=== PATIENT | male | born 1975 | race American Indian/Alaskan Native ===

== ENCOUNTER 2019-07-19 17:53 | Emergency (ER) | payer MEDICARE ==
[2019-07-19] MEDS ORDERED: SODIUM CHLORIDE 0.9% 1000 ML 1,000 ML IV ONE (18:21)
[2019-07-19 18:37] LABS: Hematocrit 46.2 % (35.5-45.6); Hemoglobin 15.6 gm/dl (11.8-15.2); Mean Corpuscular HGB Conc 34 % (32-34); Mean Corpuscular Volume 96 fl (84-94); Platelet Count 240 K/mm3 (140-440); Red Blood Count 4.83 M/mm3 (3.65-5.03); Red Cell Distribution Width 15.2 % (13.2-15.2)
--- NOTE | 2019-07-19 18:44 | Emergency Department Report ---
ED Psych HPI - General Chief Complaint: Psych Stated Complaint: SI Time Seen by Provider: 07/19/19 18:19 Source: patient, family Mode of arrival: Wheelchair - History of Present Illness Initial Comments: cc: plan to overdose, alcohol intoxication HPI: Mr. Tony is a 43-year-old male with history of alcoholism, hypertension and chronic pain who presents with alcohol intoxication and plans to commit suicide by overdose. His recovery counselor is at the bedside. Since March he has a resided at a recovery house for alcoholism. His counselor at the bedside reports that he has been drinking 1/2-1 gallon of vodka since the of his mother 1 month ago. He has been severely depressed. He informed his counselor that he would overdose on pills. He has taken pain medication for chronic knee pain. He was recently used cocaine which is a new drug of choice. He desires any new pain at this time. Denies any physical complaints. He drank vodka just prior to arrival. MD Complaint: suicidal ideation, feels depressed -: Gradual, month(s) (1) Associated Psychiatric Symptoms: depression, suicidal ideation Quality: constant Improves With: none Worsens With: none Context: recent alcohol abuse, recent drug abuse, significant life stressor Associated Symptoms: denies other symptoms Treatments Prior to Arrival: none If Self Harm: admits thoughts of, has plan - Related Data Home Medications Medication Instructions Recorded Confirmed Last Taken Adderall 10 mg PO TID 07/20/19 07/20/19 Unknown Gabapentin 600 mg PO TID 07/20/19 07/20/19 Unknown HYDROcodone/APAP 10-325 [[place] 1 mg PO TID PRN 07/20/19 07/20/19 Unknown 10-325 mg TAB] Norvasc 10 mg PO DAILY 07/20/19 07/20/19 Unknown Prozac 80 mg PO HS 07/20/19 07/20/19 Unknown traZODone 300 mg PO HS 07/20/19 07/20/19 Unknown [place] 150 mg PO QDAY 07/21/19 07/21/19 Unknown [place] Carbonate [Eskalith] 300 mg PO BID 07/21/19 07/21/19 Unknown SEROquel 400 mg PO BID 07/21/19 07/21/19 Unknown Allergies Allergy/AdvReac Type Severity Reaction Status Date / Time No Known Allergies Allergy Verified 01/16/20 22:02 ED Review of Systems ROS: Stated complaint: SI Other details as noted in HPI Comment: All other systems reviewed and negative Constitutional: denies: fever, malaise Respiratory: denies: cough Cardiovascular: denies: chest pain Gastrointestinal: denies: abdominal pain, nausea Musculoskeletal: back pain (chronic back pain), arthralgia (chronic knee pain) Neurological: denies: headache ED Past Medical Hx - Past Medical History Previous Medical History?: Yes Hx Hypertension: Yes Additional medical history: Alcoholism - Surgical History Past Surgical History?: Yes Additional Surgical History: Bilateral knee surgery - Family History Family history: hypertension - Social History Smoking Status: Never Smoker Substance Use Type: Alcohol, Cocaine, Prescribed Other Social History: Has been unemployed since March. Works in [employer]. - Medications Home Medications: Home Medications Medication Instructions Recorded Confirmed Last Taken Type Adderall 10 mg PO TID 07/20/19 07/20/19 Unknown History Gabapentin 600 mg PO TID 07/20/19 07/20/19 Unknown History HYDROcodone/APAP 10-325 [[place] 1 mg PO TID PRN 07/20/19 07/20/19 Unknown History 10-325 mg TAB] Norvasc 10 mg PO DAILY 07/20/19 07/20/19 Unknown History Prozac 80 mg PO HS 07/20/19 07/20/19 Unknown History traZODone 300 mg PO HS 07/20/19 07/20/19 Unknown History [place] 150 mg PO QDAY 07/21/19 07/21/19 Unknown History [place] Carbonate [Eskalith] 300 mg PO BID 07/21/19 07/21/19 Unknown History SEROquel 400 mg PO BID 07/21/19 07/21/19 Unknown History ED Physical Exam - General Limitations: No Limitations General appearance: alert, in no apparent distress, appears intoxicated - Head Head exam: Present: atraumatic, normocephalic - Eye Eye exam: Present: normal appearance, PERRL, conjunctival injection - ENT ENT exam: Present: mucous membranes moist - Neck Neck exam: Present: normal inspection, full ROM. Absent: tenderness, meningismus - Respiratory Respiratory exam: Present: normal lung sounds bilaterally. Absent: respiratory distress, wheezes, rales, rhonchi - Cardiovascular Cardiovascular Exam: Present: regular rate, normal rhythm, normal heart sounds. Absent: systolic murmur, diastolic murmur, rubs, gallop - GI/Abdominal GI/Abdominal exam: Present: soft, normal bowel sounds. Absent: distended, tenderness, guarding, rebound - Rectal Rectal exam: Present: deferred - Extremities Exam Extremities exam: Present: normal inspection - Neurological Exam Neurological exam: Present: alert, oriented X3 - Psychiatric Psychiatric exam: Present: depressed, flat affect - Skin Skin exam: Present: warm, dry, intact, normal color. Absent: rash ED Course Vital Signs 07/19/19 07/19/19 07/19/19 17:56 19:00 21:00 Temperature 98.6 F Pulse Rate 108 H 89 81 Respiratory 16 20 20 Rate Blood Pressure 153/106 Blood Pressure 146/96 146/69 [Left] O2 Sat by Pulse 92 94 95 Oximetry 07/20/19 07/20/19 07/20/19 00:00 08:10 10:34 Temperature 97.7 F 98.3 F Pulse Rate 92 H 99 H Respiratory 15 18 16 Rate Blood Pressure 154/98 Blood Pressure 133/88 [Left] O2 Sat by Pulse 95 93 Oximetry 07/20/19 07/20/19 11:34 12:41 Temperature 98.7 F Pulse Rate 111 H Respiratory 20 16 Rate Blood Pressure 156/100 Blood Pressure [Left] O2 Sat by Pulse 96 Oximetry ED Medical Decision Making - Lab Data Result diagrams: 07/19/19 18:15 07/19/19 18:15 Laboratory Results - last 24 hr 07/19/19 07/19/19 07/19/19 18:15 18:15 18:15 WBC 5.3 RBC 4.83 Hgb 15.6 H Hct 46.2 H MCV 96 H MCH 32 MCHC 34 RDW 15.2 Plt Count 240 Lymph % (Auto) Hadoop Admin Add Manual Diff Complete Total Counted 100 Seg Neutrophils % Hadoop Admin Seg Neuts % (Manual) 31.0 L Band Neutrophils % 0 Lymphocytes % (Manual) 63.0 H Reactive Lymphs % (Man) 0 Monocytes % (Manual) 3.0 Eosinophils % (Manual) 1.0 Basophils % (Manual) 2.0 H Metamyelocytes % 0 Myelocytes % 0 Promyelocytes % 0 Blast Cells % 0 Nucleated RBC % Not Reportable Seg Neutrophils # Man 1.6 L Band Neutrophils # 0.0 Lymphocytes # (Manual) 3.3 Abs React Lymphs (Man) 0.0 Monocytes # (Manual) 0.2 Eosinophils # (Manual) 0.1 Basophils # (Manual) 0.1 Metamyelocytes # 0.0 Myelocytes # 0.0 Promyelocytes # 0.0 Blast Cells # 0.0 WBC Morphology Not Reportable Hypersegmented Neuts Not Reportable Hyposegmented Neuts Not Reportable Hypogranular Neuts Not Reportable Smudge Cells Not Reportable Toxic Granulation Not Reportable Toxic Vacuolation Not Reportable Dohle Bodies Not Reportable Pelger-Huet Anomaly Not Reportable Lillie Rods Not Reportable Platelet Estimate Consistent w auto Clumped Platelets Not Reportable Plt Clumps, EDTA Not Reportable Large Platelets Not Reportable Giant Platelets Not Reportable Platelet Satelliting Not Reportable Plt Morphology Comment Not Reportable RBC Morphology Normal Dimorphic RBCs Not Reportable Polychromasia Not Reportable Hypochromasia Not Reportable Poikilocytosis Not Reportable Anisocytosis Not Reportable Microcytosis Not Reportable Macrocytosis Not Reportable Spherocytes Not Reportable Pappenheimer Bodies Not Reportable Sickle Cells Not Reportable Target Cells Not Reportable Tear Drop Cells Not Reportable Ovalocytes Not Reportable Helmet Cells Not Reportable [place] Bodies Not Reportable [place] Rings Not Reportable Man Cells Not Reportable Bite Cells Not Reportable Crenated Cell Not Reportable Elliptocytes Not Reportable Acanthocytes (Spur) Not Reportable Rouleaux Not Reportable Hemoglobin C Crystals Not Reportable Schistocytes Not Reportable Malaria parasites Not Reportable [place] Bodies Not Reportable Hem Pathologist Commnt No Sodium 143 Potassium 3.6 Chloride 95.9 L Carbon Dioxide 23 Anion Gap 28 BUN 7 L Creatinine 0.5 L Estimated GFR > 60 BUN/Creatinine Ratio 14 Glucose 110 H Calcium 8.1 L Total Bilirubin 0.50 AST 53 H ALT 29 Alkaline Phosphatase 140 H Total Protein 7.6 Albumin 4.0 Albumin/Globulin Ratio 1.1 Urine Color Urine Turbidity Urine pH Ur Specific [place] Urine Protein Urine Glucose (UA) Urine Ketones Urine Blood Urine Nitrite Urine Bilirubin Urine Urobilinogen Ur Leukocyte Esterase Urine WBC (Auto) Urine RBC (Auto) Urine Mucus Salicylates < 0.3 L Urine Opiates Screen Urine Methadone Screen Acetaminophen Ur Barbiturates Screen Ur Phencyclidine Scrn Ur Amphetamines Screen U Benzodiazepines Scrn Urine Cocaine Screen U Marijuana (THC) Screen Drugs of Abuse Note Plasma/Serum Alcohol 07/19/19 07/19/19 07/19/19 18:15 18:15 19:59 WBC RBC Hgb Hct MCV MCH MCHC RDW Plt Count Lymph % (Auto) Add Manual Diff Total Counted Seg Neutrophils % Seg Neuts % (Manual) Band Neutrophils % Lymphocytes % (Manual) Reactive Lymphs % (Man) Monocytes % (Manual) Eosinophils % (Manual) Basophils % (Manual) Metamyelocytes % Myelocytes % Promyelocytes % Blast Cells % Nucleated RBC % Seg Neutrophils # Man Band Neutrophils # Lymphocytes # (Manual) Abs React Lymphs (Man) Monocytes # (Manual) Eosinophils # (Manual) Basophils # (Manual) Metamyelocytes # Myelocytes # Promyelocytes # Blast Cells # WBC Morphology Hypersegmented Neuts Hyposegmented Neuts Hypogranular Neuts Smudge Cells Toxic Granulation Toxic Vacuolation Dohle Bodies Pelger-Huet Anomaly Lillie Rods Platelet Estimate Clumped Platelets Plt Clumps, EDTA Large Platelets Giant Platelets Platelet Satelliting Plt Morphology Comment RBC Morphology Dimorphic RBCs Polychromasia Hypochromasia Poikilocytosis Anisocytosis Microcytosis Macrocytosis Spherocytes Pappenheimer Bodies Sickle Cells Target Cells Tear Drop Cells Ovalocytes Helmet Cells [place] Bodies Tyrone Rings [place] Cells Bite Cells Crenated Cell Elliptocytes Acanthocytes (Spur) Rouleaux Hemoglobin C Crystals Schistocytes Malaria parasites [place] Bodies Hem Pathologist Commnt Sodium Potassium Chloride Carbon Dioxide Anion Gap BUN Creatinine Estimated GFR BUN/Creatinine Ratio Glucose Calcium Total Bilirubin AST ALT Alkaline Phosphatase Total Protein Albumin Albumin/Globulin Ratio Urine Color Yellow Urine Turbidity Clear Urine pH 6.0 Ur Specific [place] 1.010 Urine Protein <15 mg/dl Urine Glucose (UA) Neg Urine Ketones Neg Urine Blood Mod Urine Nitrite Neg Urine Bilirubin Neg Urine Urobilinogen < 2.0 Ur Leukocyte Esterase Neg Urine WBC (Auto) 29.0 H Urine RBC (Auto) 4.0 Urine Mucus Few Salicylates Urine Opiates Screen Urine Methadone Screen Acetaminophen < 5.0 L Ur Barbiturates Screen Ur Phencyclidine Scrn Ur Amphetamines Screen U Benzodiazepines Scrn Urine Cocaine Screen U Marijuana (THC) Screen Drugs of Abuse Note Plasma/Serum Alcohol 0.40 H 07/19/19 19:59 WBC RBC Hgb Hct MCV MCH MCHC RDW Plt Count Lymph % (Auto) Add Manual Diff Total Counted Seg Neutrophils % Seg Neuts % (Manual) Band Neutrophils % Lymphocytes % (Manual) Reactive Lymphs % (Man) Monocytes % (Manual) Eosinophils % (Manual) Basophils % (Manual) Metamyelocytes % Myelocytes % Promyelocytes % Blast Cells % Nucleated RBC % Seg Neutrophils # Man Band Neutrophils # Lymphocytes # (Manual) Abs React Lymphs (Man) Monocytes # (Manual) Eosinophils # (Manual) Basophils # (Manual) Metamyelocytes # Myelocytes # Promyelocytes # Blast Cells # WBC Morphology Hypersegmented Neuts Hyposegmented Neuts Hypogranular Neuts Smudge Cells Toxic Granulation Toxic Vacuolation Dohle Bodies Pelger-Huet Anomaly Lillie Rods Platelet Estimate Clumped Platelets Plt Clumps, EDTA Large Platelets Giant Platelets Platelet Satelliting Plt Morphology Comment RBC Morphology Dimorphic RBCs Polychromasia Hypochromasia Poikilocytosis Anisocytosis Microcytosis Macrocytosis Spherocytes Pappenheimer Bodies Sickle Cells Target Cells Tear Drop Cells Ovalocytes Helmet Cells [place] Bodies Tyrone Rings Man Cells Bite Cells Crenated Cell Elliptocytes Acanthocytes (Spur) Rouleaux Hemoglobin C Crystals Schistocytes Malaria parasites [place] Bodies Hem Pathologist Commnt Sodium Potassium Chloride Carbon Dioxide Anion Gap BUN Creatinine Estimated GFR BUN/Creatinine Ratio Glucose Calcium Total Bilirubin AST ALT Alkaline Phosphatase Total Protein Albumin Albumin/Globulin Ratio Urine Color Urine Turbidity Urine pH Ur Specific [place] Urine Protein Urine Glucose (UA) Urine Ketones Urine Blood Urine Nitrite Urine Bilirubin Urine Urobilinogen Ur Leukocyte Esterase Urine WBC (Auto) Urine RBC (Auto) Urine Mucus Salicylates Urine Opiates Screen Presumptive negative Urine Methadone Screen Presumptive negative Acetaminophen Ur Barbiturates Screen Presumptive negative Ur Phencyclidine Scrn Presumptive negative Ur Amphetamines Screen Presumptive negative U Benzodiazepines Scrn Presumptive negative Urine Cocaine Screen Presumptive negative U Marijuana (THC) Screen Presumptive negative Drugs of Abuse Note Disclamer Plasma/Serum Alcohol - Medical Decision Making 1. Alcohol intoxication waiting upon sobriety for our psychiatric team to e valuate. 2. Suicidal ideation with plan to overdose on pills: I have place patient on involuntary hold using 1013 protocol. Awaiting treatment recommendations by psychiatric team. Mr. Tony is medically clear for psychiatric care. Critical care attestation.: If time is entered above; I have spent that time in minutes in the direct care of this critically ill patient, excluding procedure time. ED Disposition Clinical Impression: Acute alcohol intoxication, Alcoholism, Suicidal ideation Disposition: [id number] PSY HOSP/PSY UNIT Is pt being admited?: No Does the pt Need Aspirin: No Condition: Stable
[2019-07-19 18:58] LABS: Alanine Aminotransferase 29 units/L (7-56); BUN/Creatinine Ratio 14; Blood Urea Nitrogen 7 mg/dL (9-20); Calcium 8.1 mg/dL (8.4-10.2); Hemolysis Index 33
[2019-07-19 20:14] LABS: Bilirubin,Urine NEG (Negative); Blood,Urine MOD (Negative); Color,Urine Yellow (Yellow); Mucus,Urine FEW /HPF; Protein,Urine <15 mg/dL mg/dL (Negative); Urobilinogen,Urine < 2.0 mg/dL (<2.0)
[2019-07-19 20:17] LABS: Amphetamine Screen,Urine PRESUMPTIVE NEGATIVE; Benzodiazepines Screen,Urine PRESUMPTIVE NEGATIVE; Cannabinoid Screen,Urine PRESUMPTIVE NEGATIVE; Cocaine Screen,Urine PRESUMPTIVE NEGATIVE; Methadone Screen,Urine PRESUMPTIVE NEGATIVE; Opiate Screen,Urine PRESUMPTIVE NEGATIVE
[2019-07-19 21:06] LABS: RBC Morphology Normal; Total Cells Counted 100
[2019-07-19 21:07] LABS: Platelet Estimate Consistent w Auto
[2019-07-20] MEDS ORDERED: ACETAMINOPHEN 500 MG TAB PO ONE (08:38)
[2019-07-20] MEDS ORDERED: ONDANSETRON 4 MG ODT TAB PO ONE (08:38)
[2019-07-20] MEDS ORDERED: chlordiazePOXIDE 25 MG CAP PO PRN ×2 (08:46)
[2019-07-20 12:54] VITALS: BP 156/100
== END 2019-07-20 19:34 ==
LOC: EEVIPCON 17:53 → ED 17:53
DX: T51.8X2A Toxic effect of other alcohols, intentional self-harm, initial encounter (principal); I10 Essential (primary) hypertension; F14.10 Cocaine abuse, uncomplicated; F10.129 Alcohol abuse with intoxication, unspecified; Y92.89 Other specified places as the place of occurrence of the external cause
CPT/HCPCS: 36415; 80053; 80307; 81001; 85007; 85025; 87086; 99284; J7030; 80320; G0480; Q0162